=== PATIENT | female | born 1950 | race Two or more races ===

== ENCOUNTER → 2020-07-09 | Day surgery (SDC) | payer OTHER ==
[~2020-07-09] MED LIST: LOSARTAN-HCTZ1 EAC1 PO; NASAL MIST126 ML; PERCOCET 5-3251 EACH PO; TOPROL XL50 M1 PO
== END | disposition home or self-care (01) ==
LOC: ADM 07-06 08:30 → CIR.AMB 08:30
PROVIDERS: ATTEND Surgery
DX: C20 Malignant neoplasm of rectum (principal); Z20.828 Contact with and (suspected) exposure to other viral communicable diseases
CPT/HCPCS: 36561; C1751

== ENCOUNTER 2020-07-26 08:12 | Outpatient (CLI) | payer OTHER | END 2020-07-26 08:19 | disposition home or self-care (01) | LOC: NUCLEAR 08:12 | PROVIDERS: ATTEND Surgery | DX: C20 Malignant neoplasm of rectum (principal); I80.8 Phlebitis and thrombophlebitis of other sites ==

== ENCOUNTER 2020-07-26 09:49 | Outpatient (CLI) | payer OTHER | END 2020-07-26 09:56 | disposition home or self-care (01) | LOC: RAD 09:49 | PROVIDERS: ATTEND Surgery | DX: Z00.00 Encounter for general adult medical examination without abnormal findings (principal); C20 Malignant neoplasm of rectum ==

== ENCOUNTER 2020-11-08 07:00 | Day surgery (SDC) | payer OTHER | END 2020-11-08 11:05 | disposition home or self-care (01) | LOC: AMB-ENDOS 07:00 | PROVIDERS: ATTEND Surgery | DX: K62.89 Other specified diseases of anus and rectum (principal); Z20.828 Contact with and (suspected) exposure to other viral communicable diseases ==

== ENCOUNTER 2020-11-22 10:35 | Outpatient (CLI) | payer OTHER ==
[~2020-11-22 10:35] MED LIST changes: -PRILOSEC OTC20 MG PO
== END 2020-11-22 10:43 | disposition home or self-care (01) ==
LOC: LAB 10:35
PROVIDERS: ATTEND Surgery
DX: C20 Malignant neoplasm of rectum (principal); R59.0 Localized enlarged lymph nodes; K62.5 Hemorrhage of anus and rectum; K59.09 Other constipation

== ENCOUNTER → 2020-11-22 | Outpatient (CLI) | payer OTHER ==
[~2020-11-22] MED LIST changes: +PRILOSEC OTC20 MG PO
== END | disposition home or self-care (01) ==
LOC: NUCLEAR 09:59
PROVIDERS: ATTEND Surgery
DX: M79.642 Pain in left hand (principal)

== ENCOUNTER 2020-11-23 09:15 | Inpatient (IN) | payer OTHER ==
[~2020-11-23] VITALS: Ht 152.4 cm; Wt 80.3 kg
[2020-12-06] MEDS ORDERED: PERCOCET 5-3251 EACH PO (11:29)
[2020-12-06] MEDS ORDERED: PRILOSEC OTC20 MG PO (11:29)
== END 2020-12-06 12:10 | disposition home or self-care (01) | DRG 330 ==
LOC: O/R 11-30 06:26 → SURG 11-30 06:26 → O/R 11-30 09:15 → SURG 11-30 16:36
PROVIDERS: ADMIT Surgery; ATTEND Surgery
PROC: 0DBN4ZZ Excision of Sigmoid Colon, Percutaneous Endoscopic Approach (ICD-10-PCS; 2020-11-30)
PROC: 0DBP4ZZ Excision of Rectum, Percutaneous Endoscopic Approach (ICD-10-PCS; 2020-11-30)
PROC: 07BB4ZZ Excision of Mesenteric Lymphatic, Percutaneous Endoscopic Approach (ICD-10-PCS; 2020-11-30)
PROC: 0D1B4Z4 Bypass Ileum to Cutaneous, Percutaneous Endoscopic Approach (ICD-10-PCS; principal; 2020-11-30 10:30)
DX: C19 Malignant neoplasm of rectosigmoid junction (principal); K62.5 Hemorrhage of anus and rectum; K57.20 Diverticulitis of large intestine with perforation and abscess without bleeding; R59.0 Localized enlarged lymph nodes; K59.09 Other constipation; D50.0 Iron deficiency anemia secondary to blood loss (chronic); I11.9 Hypertensive heart disease without heart failure; E66.9 Obesity, unspecified; G47.33 Obstructive sleep apnea (adult) (pediatric)

== ENCOUNTER → 2021-05-26 11:57 | Outpatient (CLI) | payer OTHER ==
[~2021-05-26 11:57] MED LIST changes: +PRILOSEC OTC20 MG PO
== END | disposition home or self-care (01) ==
LOC: LAB 11:57
PROVIDERS: ATTEND Surgery
DX: C20 Malignant neoplasm of rectum (principal); R59.0 Localized enlarged lymph nodes; K62.5 Hemorrhage of anus and rectum; K59.09 Other constipation; Z03.818 Encounter for observation for suspected exposure to other biological agents ruled out